=== PATIENT | male | born 1980 | race Caucasian/White ===

== ENCOUNTER 2017-07-13 19:55 | Emergency (ER) | payer MEDICAID ==
[~2017-07-13] VITALS: Ht 182.9 cm; Wt 90.7 kg
[~2017-07-13 19:55] MED LIST: CALC600T4 PO; CHOL400D PO; DILT180C9 PO; KEP500T PO; LACO200T PO; NAPR-476 PO; OXCA600T40 OR; TRIH2TAB3 PO; VENL150C PO; [UNRECOGNIZED DRUG - CODE] PO; [UNRECOGNIZED DRUG - OTHER] PO
[2017-07-13 20:38] LABS: Basophils # (auto) 0 uL; Basophils % (auto) 0.2 % (0.0-2.0); Eosinophils # (auto) 0.1 uL; Eosinophils % (auto) 1.1 % (0.0-7.0); Hematocrit 47.5 % (41.0-53.0); Hemoglobin 16.1 g/dL (13.5-17.5); Lymphocytes # (auto) 1.4 uL; Lymphocytes % (auto) 13.2 % (10.0-50.0); Mean Corpuscular Hemoglobin 30.8 pg (28.0-32.0); Mean Corpuscular Hgb Conc. 33.8 g/dL (32.0-36.0); Mean Corpuscular Volume 91.2 fL (80.0-100.0); Neutrophils # (auto) 7.8 uL; Neutrophils % (auto) 75.5 % (37.0-80.0); Nucleated Red Blood Cells % 0.1 %; Platelet Count (auto) 277 10^3/uL (140-450); Red Blood Cells 5.21 10^6/uL (4.5-5.90); Red Cell Distribution Width 13.2 % (11.8-14.3); White Blood Cell 10.3 10^3/uL (4.4-10.8)
[2017-07-13 20:55] LABS: Albumin 4.2 g/dL (3.4-5.0); BUN/Creatinine Ratio 16.7; Calcium 8.7 mg/dL (8.5-10.1); Potassium 3.4 mmol/L (3.5-5.1)
[2017-07-13 20:58] LABS: Bilirubin, Total 0.3 mg/dL (0.2-1.0); Total Protein 7.7 g/dL (6.4-8.2)
[2017-07-13] MEDS ORDERED: LORazepam 2MG/ML-1ML VIAL IV PRN (22:30)
[2017-07-14 01:01] VITALS: BP 126/86
[2017-07-14 02:30] LABS: Alcohol, Urine < 3.0 mg/dL (0-5); Amphetamine Screen, Urine NEGATIVE (NEGATIVE); Barbiturate Scree,Urine NEGATIVE (NEGATIVE); Benzodiazephine Screen, Urine NEGATIVE (NEGATIVE); Cannabinoid Screen, Urine NEGATIVE (NEGATIVE); Cocaine Screen, Urine NEGATIVE (NEGATIVE); Opiate Scree,Urine NEGATIVE (NEGATIVE); Phencyclidine Screen, Urine NEGATIVE (NEGATIVE)
== END 2017-07-14 01:49 | disposition home or self-care (01) ==
LOC: EDBD 19:55 → ER 19:55
DX: G40.802 Other epilepsy, not intractable, without status epilepticus (principal); J45.909 Unspecified asthma, uncomplicated; I10 Essential (primary) hypertension
CPT/HCPCS: 36415; 70450; 71045; 80053; 80307; 80320; 82542; 85025

== ENCOUNTER 2017-07-25 17:46 | Emergency (ER) | payer MEDICAID ==
[~2017-07-25] VITALS: Ht 165.1 cm; Wt 68.0 kg
[2017-07-25 19:22] VITALS: BP 145/79
[2017-07-25] MEDS ORDERED: LIDOCAINE 1% (LOCAL ANESTH.) PF 5ml SDV ONE (19:52)
[2017-07-25] MEDS ORDERED: LIDOCAINE 1% (LOCAL ANESTH.) PF 5ml SDV IJ ONE (20:00)
== END 2017-07-25 20:49 | disposition home or self-care (01) ==
LOC: ER 17:48
DX: S01.21XA Laceration without foreign body of nose, initial encounter (principal); J45.909 Unspecified asthma, uncomplicated; I10 Essential (primary) hypertension; Z79.899 Other long term (current) drug therapy; W17.89XA Other fall from one level to another, initial encounter; Y93.89 Activity, other specified; Y99.8 Other external cause status; Y92.89 Other specified places as the place of occurrence of the external cause
CPT/HCPCS: 12013

== ENCOUNTER 2019-07-12 21:32 | Emergency (ER) | payer MEDICAID ==
[~2019-07-12] VITALS: Ht 182.9 cm; Wt 81.6 kg
[~2019-07-12 21:32] MED LIST changes: -VENL150C PO; +VENL150C2 PO; +[UNRECOGNIZED DRUG - CODE] PO; -[UNRECOGNIZED DRUG - CODE] PO
[2019-07-12 23:19] LABS: Basophils # (auto) 0 10 ^3/uL (0-0.2); Basophils % (auto) 0.6 % (0.0-2.0); Eosinophils # (auto) 0.2 10 ^3/uL (0-0.8); Eosinophils % (auto) 2.1 % (0.0-7.0); Hemoglobin 14.9 g/dL (13.5-17.5); Lymphocytes # (auto) 1.6 10 ^3/uL (0.4-5.4); Lymphocytes % (auto) 19.6 % (10.0-50.0); Mean Corpuscular Hemoglobin 31.1 pg (28.0-32.0); Mean Corpuscular Hgb Conc. 34.7 g/dL (32.0-36.0); Mean Corpuscular Volume 89.6 fL (80.0-100.0); Monocytes # (auto) 0.8 10 ^3/uL (0-1.3); Monocytes % (auto) 9.5 % (0.0-12.0); Neutrophils # (auto) 5.4 10 ^3/uL (1.6-8.6); Neutrophils % (auto) 68.2 % (37.0-80.0); Nucleated Red Blood Cells % 0.1 %; Platelet Count (auto) 263 10^3/uL (140-450); Red Cell Distribution Width 13.1 % (11.8-14.3); White Blood Cell 7.9 10^3/uL (4.4-10.8)
[2019-07-12 23:32] LABS: Albumin 4.1 g/dL (3.4-5.0); Calcium 8.9 mg/dL (8.5-10.1); Potassium 3.5 mmol/L (3.5-5.1)
[2019-07-12 23:36] LABS: BUN/Creatinine Ratio 10.4; Bilirubin, Total 0.3 mg/dL (0.2-1.0); Total Protein 7.2 g/dL (6.4-8.2)
[2019-07-12] MEDS ORDERED: GABAPENTIN 400 MG CAP PO ONE (23:45)
[2019-07-13] MEDS ORDERED: levETIRAcetam 500 MG/5ML INJ IV ONE (00:39)
[2019-07-13 00:46] LABS: Urine Bacteria NONE SEEN /hpf (None Seen); Urine Blood Negative /uL (Negative); Urine Specific Gravity 1.007 (1.001-1.035); Urine WBC <1 /hpf (0 - 3)
[2019-07-13 01:00] VITALS: BP 121/86
== END 2019-07-13 01:58 | disposition home or self-care (01) ==
LOC: EDBD 21:32 → ER 21:32
DX: I10 Essential (primary) hypertension (principal); J45.909 Unspecified asthma, uncomplicated
CPT/HCPCS: 36415; 70450; 72125; 80053; 81001; 85025; 96365; 99285; J1953; J7060